=== PATIENT | male | born 1970 | race African-American/Black ===

== ENCOUNTER 2024-01-04 18:21 | Emergency (ER) | payer SELFPAY ==
[~2024-01-04] VITALS: Ht 167.6 cm; Wt 84.1 kg
[2024-01-04 18:27] VITALS: TEMP 98.7
[2024-01-04] MEDS ORDERED: valACYclovir 500 MG TAB PO ONE (19:15)
[2024-01-04] MEDS ORDERED: PREDNISONE PO ONE (19:15)
[2024-01-04] MEDS ORDERED: ZOVIRAX 200MG200 MG PO (19:23)
[2024-01-04] MEDS ORDERED: PREDNISONE20 MG PO (19:23)
[2024-01-04 19:57] VITALS: BP 170/99; PULSE 72
== END 2024-01-04 20:08 | disposition home or self-care (01) ==
LOC: COL.ER 18:21
DX: G51.0 Bell's palsy (principal)
CPT/HCPCS: J7512